=== PATIENT | female | born 1945 | race Caucasian/White ===

== ENCOUNTER 2017-03-09 04:45 | Inpatient (IN) | payer MEDICARE, BC ==
[~2017-03-09] VITALS: Ht 157.5 cm; Wt 44.1 kg
[2017-03-09 06:25] LABS: BASOPHILS 0.2 % (0-2); EOSINOPHILS 0.2 % (0-7); IMMATURE GRANULOCYTES 0.5 % (0-5); LYMPHOCYTES 5.8 % (15-50); MCH 32.4 pg (26.0-34.0); MCHC 35.5 g/dL (31.0-37.0); MCV 91.2 fL (80.0-100.0); MONOCYTES 7.1 % (2-11); NEUTROPHILS 86.2 % (40-80); PLATELET COUNT 159 10x3/uL (130-400); RDW 18.2 % (11.5-14.5); WBC 12.6 10x3/uL (4.8-10.8)
[2017-03-09 06:56] LABS: ALBUMIN 2.5 g/dL (3.4-5.0); ANION GAP 17.1 mmol/L (8-16); BILIRUBIN - TOTAL 1.13 mg/dL (0.2-1.3); CALCIUM 8.6 mg/dL (8.5-10.1); CREATININE - SERUM 5.4 mg/dL (0.6-1.3); POTASSIUM - SERUM 4.1 mmol/L (3.5-5.1); PROTEIN - SERUM 5.7 g/dL (6.4-8.2)
--- NOTE | 2017-03-09 12:00 | NUR ---
RECEIVED PT TO ROOM 2128 VIA STRETCHER FROM ER RESP UNLABORED O2 ON 2LPM NC PT C/O NAUSEA NO VOMITING AT THIS TIME ASCITES NOTED TO ABDOMEN WITH DRAIN INTACT COVERED BY JASWINDERG AT BEDSIDE WILL CONTINUE TO MONITOR
--- NOTE | 2017-03-09 12:15 | NUR ---
PT REFUSES TO HAVE NG TUBE PLACED AT THIS TIME NO VOMITING NOTED WILL CONTINUE TO MONITOR AT BEDSIDE
--- NOTE | 2017-03-09 15:15 | NUR ---
ACITES DRAINED 1400 CC REMOVED USING DRAIN WITH STERILE PROCEDURE DRSG CHANGED PT TOLERATED WELL
[2017-03-09 15:55] VITALS: BP 112/59
--- NOTE | 2017-03-09 16:45 | NUR ---
SCDs PLACED ON PT AND PATENT
--- NOTE | 2017-03-09 19:26 | NUR ---
SHIFT ASSESSMENT COMPLETE. PATIENT IS AWAKE AND ALERT WITH COMPLAINTS OF PAIN TO ABDOMEN. ABDOMEN IS DISTENDED WITH DRAIN IN PLACE FOR ACITIES. NO VOMITING AT THIS TIME. IV TO THE L/HAND WITH NS AT 50 CC/HR. PROTONIX GTT AT 10 AND ZOFRAN GTT AT 4.6. WILL MONITOR
[2017-03-09 19:46] VITALS: BP 99/61
--- NOTE | 2017-03-09 20:25 | NUR ---
ANSWERED CALL TO ROOM WITH REQUEST FOR A BEDPAN NEEDS PROVIDED. LOUIE CARE COMPLETE
--- NOTE | 2017-03-09 21:10 | NUR ---
NEEDS PROVIDE WITH NEW BAG OF PROTONIX UP TO INFUSE ORDERED. CALL LIGHT IN REACH WITH PAIN AND NEEDS DENIED
--- NOTE | 2017-03-09 23:17 | NUR ---
ANSWERED CALL TO ROOM WITH PATIENT REQUEST FOR ICE CHIPS NEEDS TO BEDSIDE.
[2017-03-09 23:38] VITALS: BP 101/59
--- NOTE | 2017-03-10 02:22 | NUR ---
ANSWERED CALL TO ROOM WITH PATIENT VOMITING DARK GREEN BILE. STATED WILL YOU PLEASE PUT THE TUBE IN MY STOMACH. NG TUBE ORDERED THE PATIENT HAD REFUSED EARLIER. 16 FR NG TUBE TO THE R/NARE PLACEMENT CONFIRMED WITH RETURN OF DARK GREEN BILE TO SUCTION. TUBE SECURED AND MARKED
[2017-03-10 03:48] VITALS: BP 113/71
[2017-03-10 05:16] LABS: BASOPHILS 0.2 % (0-2); EOSINOPHILS 0.2 % (0-7); HEMATOCRIT 28.9 % (36.0-48.0); IMMATURE GRANULOCYTES 0.3 % (0-5); LYMPHOCYTES 6.8 % (15-50); MCH 32.1 pg (26.0-34.0); MCHC 34.6 g/dL (31.0-37.0); MCV 92.6 fL (80.0-100.0); MONOCYTES 7.6 % (2-11); NEUTROPHILS 84.9 % (40-80); PLATELET COUNT 129 10x3/uL (130-400); RBC 3.12 10x6/uL (4.00-5.40); RDW 18.6 % (11.5-14.5)
[2017-03-10 05:23] LABS: ALBUMIN 2.4 g/dL (3.4-5.0); BILIRUBIN - TOTAL 1.13 mg/dL (0.2-1.3); CALCIUM 8.5 mg/dL (8.5-10.1); CARBON DIOXIDE 20.1 mmol/L (21.0-32.0); CREATININE - SERUM 5.7 mg/dL (0.6-1.3); POTASSIUM - SERUM 4.1 mmol/L (3.5-5.1); PROTEIN - SERUM 5.5 g/dL (6.4-8.2)
[2017-03-10] MEDS ORDERED: LEVOTHYROXINE50 MCG PO (06:23)
[2017-03-10] MEDS ORDERED: FUROSEMIDE40 MG PO (06:24)
[2017-03-10] MEDS ORDERED: MIDODRINE HCL5 MG PO (06:24)
[2017-03-10] MEDS ORDERED: CREON (PANCRELI1 CAP PO (06:24)
[2017-03-10] MEDS ORDERED: OMEPRAZOLE40 MG PO (06:24)
[2017-03-10] MEDS ORDERED: INDERAL10 MG PO (06:25)
[2017-03-10] MEDS ORDERED: FUROSEMIDE20 MG PO (06:25)
--- NOTE | 2017-03-10 07:30 | NUR ---
RECEIVED PT IN BED AAOX4 RESP UNLABORED NG TUBE IN PLACE AND PATENT TO LOW INTERMITTENT SUCTION DENIES ANY NEEDS AT THIS TIME
[2017-03-10 07:42] VITALS: BP 100/63
[2017-03-10 12:05] VITALS: BP 109/75
[2017-03-10 12:48] VITALS: Ht 157.5 cm; Wt 44.1 kg
[2017-03-10 15:40] VITALS: BP 107/68
--- NOTE | 2017-03-10 19:29 | NUR ---
REPOSITIONED IN BED FOR COMFORT. PT A&O, RESPERATIONS EVEN ON ROOM AIR. NG TUBE TO RIGHT NARE TO LIS. PERITENEAL DRAIN NOTED TO LEFT LOWER ABD, DRSG INTACT. IV TO LEFT HAND WITH PROTONIX AT 10, ZOFRAN AT 4.7 AND NS AT KVO, SITE CLEAN AND DRY. PTS AT BED SIDE, BED LOW, CL IN REACH, NO OTHER NEEDS EXPRESSED AT THIS TIME.
[2017-03-10 20:12] VITALS: BP 104/63
--- NOTE | 2017-03-10 22:16 | NUR ---
IN BED RESTING WITH EYES CLOSED, RESPERATIONS EVEN, WILL CONT TO MONITOR.
[2017-03-10 23:40] VITALS: BP 101/53
--- NOTE | 2017-03-11 01:28 | NUR ---
RESTING WITH EYES CLOSED, RESPERATIONS EVEN, NO S/S DISTRESS NOTED.
[2017-03-11 03:31] VITALS: BP 102/55
--- NOTE | 2017-03-11 04:00 | NUR ---
INTERNAL MEDICINE NURSE AT BEDSIDE FOR VS. NEEDS ADDRESSED AT THIS TIME. CALL LIGHT IN REACH. WILL CONT TO MONITOR.
--- NOTE | 2017-03-11 05:12 | NUR ---
ASSIST PT WITH USE OF BED BRIDGES.
[2017-03-11 06:16] LABS: BASOPHILS 0.3 % (0-2); EOSINOPHILS 1.1 % (0-7); HEMATOCRIT 27.6 % (36.0-48.0); HEMOGLOBIN 9.3 g/dL (12-16); IMMATURE GRANULOCYTES 0.5 % (0-5); LYMPHOCYTES 10.5 % (15-50); MCH 31.5 pg (26.0-34.0); MCHC 33.7 g/dL (31.0-37.0); MCV 93.6 fL (80.0-100.0); MEAN PLATELET VOLUME 9.3 fL (7.4-10.4); MONOCYTES 8.9 % (2-11); NEUTROPHILS 78.7 % (40-80); PLATELET COUNT 123 10x3/uL (130-400); RBC 2.95 10x6/uL (4.00-5.40); RDW 18.7 % (11.5-14.5); WBC 10.3 10x3/uL (4.8-10.8)
[2017-03-11 06:35] LABS: ALBUMIN 2.2 g/dL (3.4-5.0); ANION GAP 17.9 mmol/L (8-16); BILIRUBIN - TOTAL 0.93 mg/dL (0.2-1.3); CALCIUM 8.1 mg/dL (8.5-10.1); CARBON DIOXIDE 18.1 mmol/L (21.0-32.0); CREATININE - SERUM 5.9 mg/dL (0.6-1.3); PROTEIN - SERUM 5.1 g/dL (6.4-8.2)
--- NOTE | 2017-03-11 07:16 | NUR ---
PT SITTING UP IN BED SLEEPING NO S/S DISTRESS NOTED, RR EVEN AND REGULAR. NG TUBE NOTED TO R NARE ON LIS. WILL CONT TO MONITOR
[2017-03-11 08:00] VITALS: BP 92/59
--- NOTE | 2017-03-11 09:16 | NUR ---
PT IS [place]. PT HAS NO MEDICATION ORDERED FOR PAIN. PAGECan HAQUE APN.
--- NOTE | 2017-03-11 10:09 | NUR ---
PT PLEUREX CATHETER NEEDS TO BE DRAINED. FLOOR SUPPLIES DO NOT FIT PT. CALLED [facility] TO SEE IF THEY COULD BRING US UP ANY
--- NOTE | 2017-03-11 11:32 | NUR ---
PEYTON TALKED WITH SREE FROM [place] TO SEE WHERE WE CAN GET SOME PLEUREX CATHS FOR PT UP TO FLOOR. SHE IS ON IT. WILL GET BACK TO ME
[2017-03-11 12:03] VITALS: BP 100/59
--- NOTE | 2017-03-11 12:51 | NUR ---
TALKED WITH SHABNAM HILL. [facility] HAS CHECKED ALL OVER TOWN, NO ONE HAS THE [facility] PLEUREX CATH DRAINING KIT HERE. THEY ARE OVERNIGHTING IT TO THE HOSPITAL, BUT WONT BE HERE UNTIL TOMORROW. SHABNAM HILL IS AWARE AND SAID THAT IS FINE. GIVEN PT DULCOLAX SUPP FOR CONSTIPATION. NO SUCCESS YET. WILL CONT TO MONITOR
--- NOTE | 2017-03-11 14:07 | NUR ---
WOUND NURSE LUIS ALFREDO FOUND AN ADAPTER TO BE ABLE TO DRAIN PT PLEUREX DRAIN WITH OUR EQUIPMENT. [facility] DRAINING PT PLEUREX CATHETER 1000 CC DARK SHY FLUID DRAINED. CLAMPED OFF DRAIN AND REDRESSED.
[2017-03-11 16:00] VITALS: BP 104/63
--- NOTE | 2017-03-11 16:03 | NUR ---
SHABNAM HILL CALLED AND WANTED ME TO CLAMP PT NGT. DONE. WILL CONT TO MONITOR
--- NOTE | 2017-03-11 18:21 | NUR ---
PT IS SITTING UP IN BED WATCHING TV, DENIES NEEDS. STATES THAT SINCE NGT HAS BEEN CLAMPED NO S/S N/V HAVE ARROUSE.
--- NOTE | 2017-03-11 19:37 | NUR ---
ASSESSMENT COMPLETE, A&O. RESPERATIONS EVEN ON RA. NG TUBE TO RIGHT NARE CLAMPPED. IV TO LEFT HAND WITH NS INFUSING AT 50 CC/HR, ZOFRAN AT 4.7 CC/HR, AND PROTONIX AT 10 CC/HR. SITE CLEAN AND DRY. PT DENIES NEEDS AT THIS TIME, BED LOW, CL IN REACH.
[2017-03-11 20:00] VITALS: BP 107/64
--- NOTE | 2017-03-11 20:21 | NUR ---
PT C/O PAIN TO THROAT, ASKING FOR PAIN MEDS. DILAUDID 0.5 MG GIVEN IV. WILL CONT TO MONITOR.
--- NOTE | 2017-03-11 21:49 | NUR ---
ASSISTED PT WITH BILLIE BRIDGES.
[2017-03-12] VITALS: BP 96/59
--- NOTE | 2017-03-12 01:48 | NUR ---
RESTING WITH EYES CLOSED, RESPERATIONS EVEN, NO S/S DISTRESS NOTED.
--- NOTE | 2017-03-12 03:37 | NUR ---
DENTAL EQUIPMENT REPAIRER AT BEDSIDE TO OBTAIN VITALS, WILL CONTINUE WITH PLAN OF CARE.
[2017-03-12 04:00] VITALS: BP 99/60
[2017-03-12 05:47] LABS: BASOPHILS 0.4 % (0-2); EOSINOPHILS 1.8 % (0-7); HEMATOCRIT 27.9 % (36.0-48.0); HEMOGLOBIN 9.4 g/dL (12-16); IMMATURE GRANULOCYTES 0.5 % (0-5); LYMPHOCYTES 8.4 % (15-50); MCH 32.2 pg (26.0-34.0); MCHC 33.7 g/dL (31.0-37.0); MCV 95.5 fL (80.0-100.0); MEAN PLATELET VOLUME 9.3 fL (7.4-10.4); MONOCYTES 9.3 % (2-11); NEUTROPHILS 79.6 % (40-80); PLATELET COUNT 114 10x3/uL (130-400); RBC 2.92 10x6/uL (4.00-5.40); RDW 18.7 % (11.5-14.5); WBC 10.8 10x3/uL (4.8-10.8)
[2017-03-12 06:17] LABS: ALBUMIN 2.3 g/dL (3.4-5.0); ANION GAP 19.6 mmol/L (8-16); BILIRUBIN - TOTAL 0.92 mg/dL (0.2-1.3); CALCIUM 8.3 mg/dL (8.5-10.1); CREATININE - SERUM 6.1 mg/dL (0.6-1.3); MAGNESIUM - SERUM 1.4 mg/dL (1.8-2.4); PHOSPHOROUS 6.5 mg/dL (2.5-4.9); POTASSIUM - SERUM 4.6 mmol/L (3.5-5.1); PROTEIN - SERUM 5.4 g/dL (6.4-8.2)
--- NOTE | 2017-03-12 07:25 | NUR ---
PT IS SITTING UP IN BED SLEEPING RR EVEN AND UNLABORED. NO S/S DISTRESS NOTED. IV INFUSING TO LEFT HAND PATENT WITHOUT ISSUES. NGT IS CLAMPED OFF. WILL CONT TO MONITOR
[2017-03-12 08:00] VITALS: BP 103/63
[2017-03-12 12:00] VITALS: BP 103/68
[2017-03-12] MEDS ORDERED: ONCOLOGY MOUTHWA5 ML PO (12:39)
[2017-03-12] MEDS ORDERED: COLACE100 MG PO (12:41)
[2017-03-12] MEDS ORDERED: DULCOLAX5 MG PO (12:41)
--- NOTE | 2017-03-12 13:10 | NUR ---
PT IN HIGH FOWLERS POSITION. SITTING AT BEDSIDE. PT UPDATED ON POC. PT DENIES PAIN OR NEEDS AT THIS TIME.
--- NOTE | 2017-03-12 13:29 | NUR ---
Patient Name: LUCY MARTIN Admission Status: ER Accout number: [id number] Admission Date: 03-09-2017 : 1945 Admission Diagnosis: Attending: BENITA Current LOS: 1 Anticipated DC Date: 03-12-2017 Planned Disposition: Home with Hospice Primary Insurance: MEDICARE A & B PLANNED EXTERNAL PROVIDER: [facility] LATE ENTRY FROM 03-10-17, 1625 HOURS; Discharge Planning Comments: * Is the patient Alert and Oriented? Yes 0 * How many steps to enter\exit or inside your home? 2-O / 13-I 0 * PCP [facility] 0 * Pharmacy [facility] 0 * Preadmission Environment Home with Family 0 * ADLs Partial Dependent 0 * Partial ADLs (Assistance needed) Medication Management 0 * Equipment None 0 * Other Equipment [facility] 0 * List name and contact numbers for known caregivers / representatives who currently or will assist patient after discharge: OMAYRA MARTIN, SPOUSE, 0 * Community resources currently utilized Hospice Home 0 * Please name any agencies selected above. [facility], 0 * Additional services required to return to the preadmission environment? Yes * Can the patient safely return to the preadmission environment? Yes 0 * Has this patient been hospitalized within the prior 30 days at any hospital? No 0 CM MET WITH PT AND SPOUSE IN ROOM TO DISCUSS DISCHARGE PLANNING AND NEEDS. PT REPORTS IT HURTS TO TALK, PT'S SPOUSE PARTICIPATED IN ASSESSMENT, PT SHOOK OR NODDED HEAD IN AGREEMENT OR DISAGREEMENT. PT'S SPOUSE REPORTS PT LIVING AT HOME INDEPENDENLTY WITH SPOUSE EITHER AT THEIR HOME IN [place] OR [facility] IN [place]. PT HAS NO MEDICAL EQUIPMENT, THEY PLAN TO INSTALL A ELEVATOR CHAIR LIFT AT HOME TO ALLOW PT ACCESS TO BEDROOM ON SECOND FLOOR AND WILL NEED A WRITTEN PRESCRIPTION SO THEY WILL NOT HAVE TO PAY SALES TAX ON THE DEVICE. PT WAS ON HOSPICE WITH [facility] WHO CAME OUT TO EMPTY PT'S DRAIN, BUT WILL REVOKE BECAUSE OF THE TUBE IN PT'S NOSE TO DRAIN HER STOMACH. PT WILL READMIT TO HOME HOSPICE AFTER DISHCHARGE HOME. PT'S SPOUSE REPORTS HE WILL CONTACT HOSPICE TO TELL THEM WHERE THEY WILL BE, HOME OR [facility], THEY PROVIDE SERVICES AT BOTH LOCATIONS. PT AND SPOUSE DENIED FURTHER DISCHARGE NEEDS, SPOUSE REPORTS HE WILL PICK PT UP FOR DISCHARGE HOME. CM RECEIVED FAX FROM [facility] WITH REVOCATION FORM, CM PROVIDED TO PT WHO HAD HER SPOUSE SIGN. CM FAXED SIGNED FORM BACK TO [facility] AT [phone]. [facility] PLANS TO READMIT PT AFTER PT GETS BACK HOME; PT PLANS TO READMIT TO [facility] AFTER DISCHARGE HOME. FOR DISCHARGE, NOTIFY [facility] AT [phone], FAX DISCHARGE INFORMATION TO [facility] AT [phone]. CM TO CONTINUE TO FOLLOW AND ASSIST NEEDED. Tile Layer: Jean Willson
--- NOTE | 2017-03-12 14:10 | NUR ---
NG TUBE DISCONTINUED WITH TIP INTACT. PT TOLERATED WELL. IV DC'D WITH CATH TIP INTACT PER [facility], PT TOLERATED WELL.
--- NOTE | 2017-03-12 14:16 | NUR ---
Patient Name: LUCY MARTIN Encounter No: [id number] : 1945 Primary Insurance: MEDICARE A & B Anticipated DC Date: 03-12-2017 Planned Disposition: Home with Hospice External Planned Provider: [facility] DCP follow-up note: CM RECEIVED DISCHARGE ORDER, MET WITH PT AND SPOUSE IN ROOM, PT WILL DISCHARGE HOME TO [facility], SPOUSE HAS NUMBER TO CALL [facility] WHEN THEY GET HOME FOR READMISSION TO HOSPICE. PT'S SPOUSE TO TRANSPORT PT HOME, DENIES DISCHARGE NEEDS. IMPORTANT MESSAGE FROM MEDICARE PROVIDED AND EXPLAINED. CM NOTIFIED [facility] AT [phone], FAXED DISCHARGE INFORMATION TO [facility] AT [phone]. Jean Willson, CASE MANAGEMENT
--- NOTE | 2017-03-12 14:32 | NUR ---
WENT OVER DC INSTRUCTIONS WITH PT AND PT BOTH VERBALIZE UNDERSTANDING. DC PIV WITH CATH TIP INTACT. PT HAS WRITTEN SCRIPTS FOR MEDICATIONS. HELPED PT GET DRESSED AND WAITING FOR A WHEELCHAIR TO DC TO FRONT ENTRANCE WITH
== END 2017-03-12 14:43 | disposition home health service (06) | DRG 377 ==
LOC: D.ER 04:45 → D.M2 10:49
PROVIDERS: Emergency Medicine; Family Medicine; ADMIT Family Medicine
DX: K92.2 Gastrointestinal hemorrhage, unspecified (principal); K76.7 Hepatorenal syndrome; D62 Acute posthemorrhagic anemia; K56.7 Ileus, unspecified; K56.60 Unspecified intestinal obstruction; K74.60 Unspecified cirrhosis of liver